=== PATIENT | male | born 2000 | race Caucasian/White ===

== ENCOUNTER 2021-12-08 13:30 | Emergency (ER) | payer OTHER, SELFPAY ==
[2021-12-08 13:48] VITALS: BP 129/69; PULSE 87; RESP 18; TEMP 36.3; O2SAT 100
--- NOTE | 2021-12-08 14:12 | ED.NAVMDI ---
HPI - Nausea/Vomiting/Diarrhea General Chief complaint: Nausea/Vomiting/Diarrhea Stated complaint: Nausea,Diarhea,Vomiting Source: patient Mode of arrival: ambulatory Limitations: no limitations History of Present Illness HPI Narrative: 21-year-old male presents to [facility] with complaints of lower abdominal pains, nausea, vomiting, diarrhea and chills for the past 5 days. Patient reports that he has been able to eat much food due to nausea and vomiting. Patient reports that he has urinated 1-2 times so far today. Patient reports that he has vomited 4-5 times over the past 24 hours and has had 2 episodes of diarrhea over the past 24 hours. Patient denies sick contacts. Patient denies recent travel. Patient reports that he has been feeling anxious over the past week or so due to an important event coming up. Patient denies suicidal or homicidal ideations. Patient currently does not have a primary care provider. Patient reports that he has not taken medications for anxiety or depression in the past. MD elicited complaint: nausea, vomiting, diarrhea and abdominal pain Onset (ago): day(s) (5) Associated nausea: Yes Associated abdominal pain: Yes Quality: aching Related Data Home Medications Medication Instructions Recorded Confirmed No Home Medications 12/08/21 12/08/21 Allergies Allergy/AdvReac Type Severity Reaction Status Date / Time No Known Allergies Allergy Mild Verified 12/08/21 13:38 Review of Systems Constitutional: Constitutional: Reports chills, Denies fatigue, Denies fever(s) and Denies weakness ENT: Denies vertigo and Denies dizziness Cardiovascular: Cardiovascular: Denies chest pain Respiratory: Respiratory: Denies chest congestion and Denies cough Gastrointestinal: Gastrointestinal: Reports abdominal pain, Reports diarrhea, Reports nausea and Reports vomiting Musculoskeletal: Musculoskeletal: Denies arthralgias and Denies joint swelling Integumentary/Breasts: Skin/Breast: Denies rash Neurologic: Denies dizziness PMFSH Social History Social History (Updated 12/08/21 @ 14:40 by Cheryl Robb APRN) Smoking status: Never smoker Substance use type: marijuana Comments At time of signature, I agree with nursing past medical, surgical, social and family history. There is no relevant family history pertinent to the presenting complaint. Exam Const: General: healthy appearing Nutritional Appearance: well nourished Orientation/consciousness: patient oriented x3 Limitations: no limitations Neck: Neck: normal visual inspection Resp: Effort & Inspection: normal respiratory effort and not labored Auscultation: clear to auscultation bilaterally and no crackles Cardio: Rate: regular rate Rhythm: regular rhythm Heart sounds: no murmurs GI: GI Palp: Yes Soft to palpation, Yes Tenderness to palpation present (GI) (Tenderness to right lower and left lower quadrant upon palpation), No Rigid due to palpation, No Palpable mass present and No Rebound tenderness present Auscultation: normal bowel sounds : General: Yes bladder normal to palpation Back/Spine/Pelvis: Back: no CVA tenderness Skin: General skin exam: normal color Rashes: no rashes Wounds: no wounds Neuro: General: patient oriented x3 Speech: normal speech Psych: Mental Status: mental status grossly normal Attitude: cooperative Other: Patient is tearful at times during examination. Patient is cooperative with examination. Patient appears anxious at times. Maintains eye contact during examination. Denies suicidal or homicidal ideations Course Course Level of Care: Express Care Visit Vital Signs Vital signs: Vital Signs Temperature 36.3 C L 12/08/21 13:48 Pulse Rate 87 12/08/21 13:48 Respiratory Rate 18 12/08/21 13:48 Blood Pressure 129/69 12/08/21 13:48 Pulse Oximetry 100 12/08/21 13:48 Oxygen Delivery Room Air 12/08/21 13:48 Temperature 36.3 C L 12/08/21 13:48 Pulse Rate 87 0
== END 2021-12-08 14:38 | disposition short-term general hospital (02) ==
PROVIDERS: Emergency Provider Nurse Practitioner Family
DX: R10.31 Right lower quadrant pain (principal); R10.32 Left lower quadrant pain; Z20.822 Contact with and (suspected) exposure to COVID-19
CPT/HCPCS: 87426; 99213; C9803; G0463

== ENCOUNTER 2021-12-08 14:53 | Emergency (ER) | payer OTHER, SELFPAY ==
[2021-12-08] VITALS (21 sets, daily range): BP systolic 131–165; BP diastolic 74–97; PULSE 78–98; RESP 10–29; TEMP 36.4–37.2; O2SAT 98–100
--- NOTE | ~2021-12-08 | CT_ITS ---
EXAMINATION: CT abdomen pelvis w con DATE: 12/08/2021 19:00 INDICATION: rlq pain TECHNIQUE: Computed tomography (CT) of the abdomen and pelvis was performed with 100 mL Omnipaque-350 intravenous contrast. Automated exposure control and iterative reconstruction technique were employe d. The dose-length product was 562.25 mGy-cm. COMPARISON: None. FINDINGS: Lower thorax: Unremarkable Liver: Normal. Biliary/Gallbladder: Gallbladder is normal. No bile duct dilation. Pancreas: No mass or duct dilation. Spleen: Normal. Adrenals:No mass. Kidneys: No mass, stone, or hydronephrosis. GI tract: No small or large bowel dilation. Normal appendix. Mesentery/Peritoneum: No ascites, mass, or free air. Retroperitoneum: No mass. Pelvis: Pelvic organs are within normal limits. Soft Tissues: Soft tissues and body wall unremarkable. Bones: No acute osseous finding. IMPRESSION: No acute abdominopelvic process detected. Reviewed, dictated and finalized at location K.
[2021-12-08 15:05] LABS: Basophils Percent Auto 0.4 % (0.2-1.2); Eosinophils Percent Auto 0.3 % (0-4.4); Hematocrit 46.6 % (42.0-52.0); Immature Granulocyte Absolute 0.02 K/mm3 (0.00-0.031); Immature Granulocyte Percent A 0.3 % (0-0.5); Lymphocytes Absolute Auto 1.44 K/mm3 (0.9-3.2); Lymphocytes Percent Auto 20.2 % (18.3-44.2); Mean Corpuscular HGB Conc 34.3 g/dl (32-36); Mean Corpuscular Hemoglobin 29.6 pg (26-34); Mean Corpuscular Volume 86.3 fl (80-100); Mean Platelet Volume 11.4 fl (7.4-10.4); Monocytes Absolute Auto 0.6 K/mm3 (0.1-0.6); Monocytes Percent Auto 8.1 % (2.6-8.5); Neutrophils Absolute Auto 5.1 K/mm3 (1.3-6.7); Neutrophils Percent Auto 70.7 % (45.5-73.1); Platelet Count Result 266 k/mm3 (150-375); Red Cell Distribution Width 11.4 % (11.5-14.5); White Blood Count 7.1 K/mm3 (4.5-10.0)
[2021-12-08 15:16] LABS: Alanine Aminotransferase 21 U/L (6-50); Albumin Level 5.5 g/dL (3.5-5.1); Alkaline Phosphatase 82 U/L (38-126); Anion Gap 17 mmol/L (8-16); Aspartate Amino Transferase 29 U/L (17-59); Bilirubin,Total 2.3 mg/dL (0.2-1.3); Blood Urea Nitrogen 15 mg/dL (9-20); Calcium 9.9 mg/dL (8.4-10.2); Carbon Dioxide 24 mmol/L (22-30); Chloride 99 mmol/L (98-107); Estimated CRCL calculation 102 ml/min; Estimated Glomerular Filt Rate > 60; Glucose 95 mg/dL (65-110); Lipase 69 U/L (23-300); Potassium 3.9 mmol/L (3.4-5.0); Sodium 140 mmol/L (137-145)
[2021-12-08 17:06] LABS: Appearance Urine Slightly Cloudy (Clear); Bilirubin Urine 2+ (Negative); Blood Urine Negative (Negative); Color Urine Yellow (Yellow); Glucose Urine UA Negative (Negative); Ketones Urine 4+ mg/dL (Negative); Leukocyte Esterase Ur Negative LEU/UL (Negative); Nitrate Urine Negative (Negative); Protein Urine 1+ mg/dL (Negative); Specific Grav Ur 1.025 (1.001-1.035)
[2021-12-08 17:12] LABS: Mucus Urine Heavy /lpf; RBC Urine 0-2 /hpf (0-2); Squamous Epithelial Cell Urine Rare /hpf (Few); WBC Urine 0-3 /hpf
[2021-12-08 17:38] LABS: Add Urine Microscopic? YES
[2021-12-08] MEDS: SODIUM CHLORIDE 0.9% IV 1,000 ML 999 ML IV CONT (18:37)
[2021-12-08] MEDS: ONDANSETRON INJ 4 MG/2 ML VIAL IV PUSH (18:39)
--- NOTE | 2021-12-08 18:52 | PC.NURSE ---
Pt to CT
--- NOTE | 2021-12-08 20:12 | ED.ABDPAIN ---
HPI - Abdominal Pain General Chief Complaint: Abdominal Pain Stated Complaint: abd pain Time Seen by Provider: 12/08/21 18:00 History of Present Illness HPI narrative: Patient is a 21-year-old male who presents ER with nausea and vomiting diarrhea. Reports he has vomited 5 times last 24 hours. He has been having 1 diarrhea stool each day. Reports he has been under a lot of stress because a friend of his is getting . Reports he has had issues with GI illness in the past when he has been under stress. No formal diagnosis of IBS or IBD. Was seen at urgent care and they felt a right lower quadrant tenderness and sent him here for labs and imaging. Patient has no hematemesis. He has noticed some pink blood on his toilet paper when wiping. Related Data Allergies Allergy/AdvReac Type Severity Reaction Status Date / Time No Known Allergies Allergy Mild Verified 12/08/21 13:38 Review of Systems Review of Systems: All systems reviewed & are unremarkable except as noted in HPI and below Constitutional: Constitutional: Denies chills, Reports fatigue and Denies fever(s) ENT: Denies nasal congestion Cardiovascular: Cardiovascular: Denies chest pain, Denies rapid heart rate and Denies radiating jaw, neck or arm pain Respiratory: Respiratory: Denies cough and Denies dyspnea Gastrointestinal: Gastrointestinal: Reports abdominal pain, Reports diarrhea, Reports nausea and Reports vomiting Genitourinary: Genitourinary: Denies dysuria and Denies urinary frequency PMFSH Past Medical History Medical History (Updated 12/08/21 @ 20:16 by Mikal Garcia MD) Healthy adult male Surgical History Surgical History (Updated 12/08/21 @ 20:14 by Mikal Garcia MD) No history of previous surgery Social History Social History (Updated 12/08/21 @ 14:40 by Cheryl Robb APRN) Smoking status: Never smoker Substance use type: marijuana Exam Narrative: GENERAL: Well-appearing, well-nourished, and in no acute distress. HEAD: Normocephalic, atraumatic. EYES: PERRL and EOMI. CHEST: Clear to auscultation. No respiratory distress. HEART: Regular rate and rhythm. Normal peripheral pulses. ABDOMEN: Soft, mild right lower quadrant tenderness without guarding, nondistended, normal active bowel sounds. EXTREMITIES: Normal range of motion. No edema. SKIN: Warm, dry, no rash. NEURO: Alert and oriented x3. PSYCH: Normal mood and affect. Course Course Emergency Course: Blood work unremarkable. UA with ketones. Patient hydrated and p.o. challenge. Imaging negative. Discharge home with antiemetics. Needs follow-up with PCP. May require GI evaluation if symptoms persistent. Vital Signs Vital signs: Vital Signs Temperature 98.0 F 12/08/21 14:55 Pulse Rate 84 12/08/21 14:55 Respiratory Rate 14 12/08/21 14:55 Blood Pressure 165/97 H 12/08/21 14:55 Pulse Oximetry 100 12/08/21 14:55 Oxygen Delivery Room Air 12/08/21 14:55 Temperature 97.6 F 12/08/21 17:35 Pulse Rate 86 12/08/21 19:52 Respiratory Rate 20 12/08/21 19:52 Blood Pressure 147/80 H 12/08/21 19:39 Pulse Oximetry 98 12/08/21 19:52 Oxygen Delivery Room Air 12/08/21 17:35 MDM - Abdominal Pain Lab Data Result diagrams: 12/08/21 14:59 12/08/21 14:59 Labs: Lab Results 12/08/21 12/08/21 12/08/21 Range/Units 14:59 14:59 16:51 WBC 7.1 (4.5-10.0) K/mm3 RBC 5.40 (4.6-6.20) M/mm3 Hgb 16.0 (14.0-18.0) g/dL Hct 46.6 (42.0-52.0) % MCV 86.3 (80-100) fl MCH 29.6 (26-34) pg MCHC 34.3 (32-36) g/dl RDW 11.4 L (11.5-14.5) % Plt Count 266 (150-375) k/mm3 MPV 11.4 H (7.4-10.4) fl Immature Gran % (Auto) 0.3 (0-0.5) % Neut % (Auto) 70.7 (45.5-73.1) % Lymph % (Auto) 20.2 (18.3-44.2) % [place] % (Auto) 8.1 (2.6-8.5) % Eos % (Auto) 0.3 (0-4.4) % Baso % (Auto) 0.4 (0.2-1.2) % Lymph # (Auto) 1.44 (0.9-3.2) K/mm3 Mo
== END 2021-12-08 20:35 | disposition home or self-care (01) ==
PROVIDERS: Emergency Provider Emergency Medicine
DX: R19.7 Diarrhea, unspecified (principal); R10.31 Right lower quadrant pain
CPT/HCPCS: 36415; 74177; 80053; 81001; 83690; 85025; 87426; 96361; 96374; 99284; C9803; J2405; J7030; Q9967

== ENCOUNTER 2022-02-24 11:43 | Outpatient (CLI) | payer OTHER, SELFPAY ==
[2022-02-24 12:16] LABS: Alanine Aminotransferase 23 U/L (6-50); Albumin Level 4.7 g/dL (3.5-5.1); Alkaline Phosphatase 57 U/L (38-126); Aspartate Amino Transferase 28 U/L (17-59); Bilirubin,Total 0.8 mg/dL (0.2-1.3); CRP < 0.5 mg/dL (<1.0)
[2022-02-24 12:32] LABS: Erythrocyte Sedimentation Rate 10 mm/hr (0-20)
[2022-02-26 19:58] LABS: H pylori, Urea Breath NOT DETECTED (NOT DETECTED)
[2022-03-02 08:18] LABS: Gliadin AB, IgG <1.0; TTG IGA AB <1.0
== END 2022-02-24 11:44 | disposition home or self-care (01) ==
LOC: ANHLAB 11:45
PROVIDERS: Visit Provider Nurse Practitioner
DX: K21.9 Gastro-esophageal reflux disease without esophagitis (principal); K58.9 Irritable bowel syndrome, unspecified; R11.2 Nausea with vomiting, unspecified; R17 Unspecified jaundice; R63.0 Anorexia
CPT/HCPCS: 36415; 80076; 83013; 83516; 84443; 85652; 86140

== ENCOUNTER 2024-09-03 12:10 | Emergency (ER) | payer OTHER, SELFPAY ==
--- OUTSIDE RECORDS SUMMARY | 2024-09-03 12:12 | XMS_ITS ---
Author Organization [facility] Address [address] [address] Care Team Providers Care Intake Man Name Role Phone Krystle Buckley PA-C Primary Care Provider UnavailChrista Rudolph Unavailable [phone] Social History Sex Assigned At : Social History Observation Description Sex Assigned At Male Encounters Encounter Location Date Provider Diagnosis [facility] [address] [facility] [address] [place] [address] 05/09/2024 Christa Steele Plan Of Treatment Next Appt Details Provider Name:Christa Steele, 02/21/2025 01:15:00 PM, [address], [facility] [address], [place], [address], Progress Notes * CAROL COXDOB:[birth year] (24 yo M)Acc No.[id number]:05/09/2024 Patient: Katiana HORVATH CAROL LORD Provider: HORTENCIA BURNETTE :2000 A ge:24 Y S ex:Male Date:05/09/2024 Address:[address] [place] [id number] Pcp:Krystle Buckley PA-C Subjective: * Chief Complaints: * * Medical History: Objective: * Vitals: Assessment: Plan: * Treatment: * Billing Information: * Visit Code: * Procedure Codes: * Electronic signature of HORTENCIA Plata on 09/03/2024 at 12:12 PM CDT Sign off status: Pending * Provider: JACQUELIN BURNETTEP Date: 0 05/09/2024 Generated for oY carrillo/Jad/Gagandeep on: 0 09/03/2024 12:12 PM CDT
--- OUTSIDE RECORDS SUMMARY | 2024-09-03 12:12 | XMS_ITS | Clinical Summary ---
Author Organization [facility] Address [address] [place] [address] Care Team Providers Care Radio Mechanic Apprentice Name Role Phone Unavailable Primary Care Provider Unavailabl e Immunizations Immunization Administration Dates Next Due Covid-19, Mrna, Lnp-s, Pf, 30 Mcg/0.3 Ml Dose (P fizer) 02/11/2021,01/02/2021 Social History Tobacco Use Types Packs/Day Years Used Date Smoking Tobacco: Never Assessed Sex and Gender Information Value Date Recorded Sex Assigned at Not on file Legal Sex Male 11:22 AM CDT Gender Identity Not on file Sexual Orientation Not on file Plan of Treatment Health Maintenance Due Date Last Done Comments Hepatitis C Virus (HCV) Screening 2000 Influenza Immunization (#1) 2024 11/0 10/2017, 01/08/2017, 01/12/2014, Additional history exists SARS-COV-2 Immunization ( season) 2024 02/11/2021, 01/02/2021 Respiratory Syncytial Virus (RSV) Immunization (Adult) (1 - 1-dose 75+ series) 2074 Hepatitis B Immunization Completed 000, 1999, 1999 DTaP/Tdap/Td Immunization Discontinued 2010, 07/22/2000, 1999, Additional history exists TdaP Immunization Completed 11/24/2010 Human Papillomavirus (HPV) Immunization Completed 12/28/2014, 06/22/2014, 01/12/2014, Additional history exists Meningococcal Immunization (ACWY) Completed 01/08/2017, 11/24/2010 Pneumococcal Immunization Combined Aged Out No longer eligible based on patient's age to complete this topic Rotavirus Immunization Aged Out No lo nger eligible based on patient's age to complete this topic
--- OUTSIDE RECORDS SUMMARY | 2024-09-03 12:12 | XMS_ITS | Clinical Summary ---
Author Organization [facility] Address [address] [place] [address] Care Team Providers Care Generating Plant Superintendent Name Role Phone Kylie Martinez MD Unavailable [phone] Kylie Martinez MD Primary Care Provider [phone] Source Comments [facility],non-owned Affiliates and Associated Physician Practices is amultiple site organization consisting of ambulatory clinics and hospital sitesin [place], [place], [place] and [place]. This disclosure is being madepursuant to the Care Everywhere program and may not contain all information available regarding this patient. Last updated 18.[employer] [facility] Allergies No known active allergies Medications * Be aware that medications may not be up to date on this document. Alwaysverify current medications with the patient. acetaminophen (TYLENOL) 500 MG tablet Take 500 mg by mouth every 4 hours as needed for Fever or Pain. Maximum allowable Acetaminophen amount = 4 Grams (4000 mg) / 24 hours. Active omeprazole (PRILOSEC) 40 MG capsule Take 1 Cap by mouth 2 times daily,before breakfast and supper. 60 Cap 2 5 Active Additional Information Patient not taking.Reported on 01/08/2017 minocycline (MINOCIN) 100 MG capsule TAKE 1 CAPSULE BY MOUTH TWICE DAILY 60 capsule 1 0 Active Active Problems Problem Noted Date Diagnosed Date Epigastric abdominal pain 08/07/2014 GE reflux 08/07/2014 Nausea without vomiting 08/07/2014 Overview (01/31/2015): Buckle Fracture of left distal radius 09/28/2012 Abdominal pain 07/08/2012 Chest pain 07/08/2012 Status post patch closure of ASD 03/29/2012 Immunizations Immunization Administration Dates Next Due DTaP VACCINE IM (6wk-6yrs) 12/01/2004,,1999,05/15,1999 HEP A PEDS 2 DOSE 01/29/2006,12/01/2004 HEP B VACCINE, PED/ADOL 04/22/2000,1999, HIB BOOSTER 07/22/2000, 0,1999,03/11 Human Papilloma Virus Yaron valent Vaccine 12/28/2014,06/22/2014,01/12/2014 INFLUENZA VACCINE 01/25/2009, 7,01/29/2006,04/10,03/09/2005 INFLUENZA VACCINE, QUADR. (F LUZONE; FLULAVAL; FLUARIX; AFLURIA QUADRIVALENT; 6MO+), 0.5 ML (IIV4) 03/09/2018,01/08/2017 Influenza Nasal 05/16/2012,03/16/2011,02/27/2010 CARA VACCINE QUAD LAIV4 PF NASAL 01/12/2014 MENINGOCOCAL MENINGITIS 11/24/2010 MENINGOCOCCAL ACWY (MCV4P) VAC IM 01/08/2017 MMR 12/01/2004,01/22/2000 POLIO IPV 12/01/2004, 0,1999,03/11 PPD 12/01/2004,01/22/2000 TDAP (7yrs+) 11/24/2010 VARICELLA 11/24/2010,04/22/2000 Family History Medical History Relation Name Comments GERD - Gastroesophageal Reflux Disease Maternal Grandm other Celiac Disease Neg Hx Crohn's Disease Neg Hx IBS Neg Hx Stomach ulcers Neg Hx Ulcerative Colitis Neg Hx Relation Name Status Comments Maternal Grandmother Social History Tobacco Use Types Packs/Day Years Used Date Smoking Tobacco: Never Alcohol Use Standard Drinks/Week Comments No 0 (1 standard drink = 0.6 oz pur e alcohol) Sex and Gender Information Value Date Recorded Sex Assigned at Not on file 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 Gender Identity Not on file Sexual Orientation Not on file Last Filed Vital Signs Vital Sign Reading Time Taken Comments Blood Pressure 132/70 01/08/2017 3:45 PM CDT Pulse 70 01/08/2017 3:45 PM CDT Temperature 36.4 C (97.5 F) 12/13/2019 3:02 PM CDT Respiratory Rate 16 08/01/2010 9:58 AM CDT Oxygen Saturation 98% 06/25/2012 10:41 AM GLUE JOINTER FEEDER Inhaled Oxygen Concentration - - Weight 76.5 kg (168 lb 9.6 oz) 12/13/2019 3:02 P M CDT Height 174 cm (5' 8.5 ) 01/08/2017 3:45 PM CDT Body Mass Index - - Plan of Treatment Health Maintenance Due Date Last Done Comments HIV SCREENING 2014 HEPATITIS C SCREENING 01/04/2017 DTAP/TDAP/TD VACCINES (7 - Td or Tdap) 11/24/2020 11/24/2010, 12/01/2004, 07/22/2000, Additional history exists COVID-19 VACCINE (2023- season) 2024 DEPRESSION SCREENING 05/03/2024 INFLUENZA VACCINE (Season Ended) 2025 03/09/2018, 01/08/2017, 01/12/2014, Additional history exists ZOSTER VACCINE (1 of 2) 2049 HEPATITIS B VACCINE Completed 04/22/2000, 1999, 1999 HIB VACCINE Completed 07/22/2000, 07/01, 1999, Additional history exists HPV VACCINE Completed 12/28/2014, 06/04, 01/12/2014 MENINGOCOCCAL GROUPS A/C/Y/W VACCINE Completed 01/08/2017, 11/24/2010 MENINGOCOCCAL (Group B) VACCINE SHARED DECISION-MAKING Aged Out No longer eligible based on patient's age to complete this topic PNEUMOCOCCAL VACCINE Aged Out No long er eligible based on patient's age to complete this topic Goals Goal Patient Goal Type Associated Problems Recent Progress Patient-Stated? Author Use safety retraint in car Lifestyle On track( 017 3:46 PM CDT) No Kylie Thomas, [place] Insurance Care Teams Generating Plant Superintendent Relationship Specialty Start Date End Date Kylie Martinez MD PCP - Pediatrics 03/07/09 Kylie Martinez MD PCP - General Pediatrics 08/07/14
--- OUTSIDE RECORDS SUMMARY | 2024-09-03 12:12 | XMS_ITS | Patient Health Record ---
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 Name Role Phone Krystle Buckley PA-C Primary Care Provider Unavailab Christa Pina Unavailable [phone] Carlos Garibay Unavailable [phone] Migration, Provider Unavailable Unavailable Allergies No Known Allergies Reason For Referral No Information Medications Medication SIG (Take, Route, Frequency, Duration) Notes Start Date End Date Status Ondansetron 4 MG Oral 09/08/2023 Un known clomiPRAMINE HCl 50 MG 2 capsule at bedt linda Oral Once a day for 90 days Active clomiPRAMINE HCl 75 MG 2 capsule at bedt linda Oral Once a day for 90 days Active busPIRone HCl 30 MG 1 tablet Oral Once a day for 90 days Active hydrOXYzine HCl 25 MG Oral 09/08/2023 Not-Taking Omeprazole 40 MG Oral 09/08/2023 Un known Rexulti 3 MG 1 tablet Orally Once a day for 90 days Active Social History Tobacco Use: Social History Observation Description Date Details (start date - stop date) Never Smoker NA - NA Sex Assigned At : Social History Observation Description Sex Assigned At Male Tobacco Control (Standard) Question Answer Notes Tobacco use: Nonsmoker AUDIT-C (Standard) Question Answer Notes Did you have a drink containing alcohol in the p ast year? No Problems Problem Type SNOMED Code ICD Code Onset Dates Problem Status W/U Status Risk Notes Problem Severe recurrent major depression without psychotic features (62050458) Major depressive disorder, recurrent severe without psychotic features (F33.2) Active confirmed Problem Generalized anxiety disorder (80615659) Generalized anxiety disorder (F41.1) Active confirmed Problem Obsessive-compul sive disorder (912543154) Obsessive-compu lsive disorder, unspecified (F42.9) Active confirmed Vital Signs Heart Rate 91 /min 08/22/2024 Blood pressure diastolic 83 mm Hg 08/22/2024 Height-cm 175.26 cm 08/22/2024 Weight-kg 99.79 kg 08/22/2024 Height 69.00 in 08/22/2024 Blood pressure systolic 119 mm Hg 08/22/2024 Weight 220 lbs 08/22/2024 BMI 32.48 kg/m2 08/22/2024 Encounters Encounter Location Date Provider Diagnosis [facility] [place] [id number] [address] 09/08/2023 Christa Ivette Major depressive disorder, recurrent severe without psychotic features F33.2 ; Generalized anxiety disorder F41.1 and Obsessive-compulsive disorder, unspecified F42.9 [facility] [place] [id number] [address] 11/08/2023 Christa Ivette Major depressive disorder, recurrent severe without psychotic features F33.2 ; Generalized anxiety disorder F41.1 and Obsessive-compulsive disorder, unspecified F42.9 [facility] [address] [address] 11/24/2023 Carlos Garibay Obsessive-compulsive disorder, unspecified F42.9 [facility] [address] [address] 12/20/2023 Christa Ivette Major depressive disorder, recurrent severe without psychotic features F33.2 ; Generalized anxiety disorder F41.1 and Obsessive-compulsive disorder, unspecified F42.9 [facility] [address] [facility] [address] [place] [address] 01/28/2024 Christa Ivette Major depressive disorder, recurrent severe without psychotic features F33.2 ; Generalized anxiety disorder F41.1 and Obsessive-compulsive disorder, unspecified F42.9 [facility] [address] [address] 03/10/2024 Christa Ivette Major depressive disorder, recurrent severe without psychotic features F33.2 ; Generalized anxiety disorder F41.1 and Obsessive-compulsive disorder, unspecified F42.9 [facility], [facility] [address] [place] [address] 05/30/2024 Christa Steele Major depressive disorder, recurrent severe without psychotic features F33.2 ; Generalized anxiety disorder F41.1 and Obsessive-compulsive disorder, unspecified F42.9 [facility], [facility] [address] [place] [address] 08/22/2024 Christa Steele Encounter for screening for depression Z13.31 ; Encounter for screening for cardiovascular disorders Z13.6 ; Major depressive disorder, recurrent severe without psychotic features F33.2 ; Generalized anxiety disorder F41.1 and Obsessive-compulsive disorder, unspecified F42.9 [facility] [address] [place] [address] 09/18/[address] [facility], [facility] [address] [place] [address] 09/19/[address] [facility], [facility] [address] [place] [address] 12/07/[address] [facility], [facility] [address] [place] [address] 03/23/2024 Christa Steele Generalized anxiety disorder F41.1 [facility] [address] [place] [address] 12/03/[address] [facility], [facility] [address] [place] [address] 12/04/[address] [facility], [facility] [address] [place] [address] 12/06/[address] [facility], [facility] [address] [place] [address] 12/07/2023 Christa Steele Obsessive-compulsive disorder, unspecified F42.9 [facility], [facility] [address] [place] [address] 02/22/2024 Christa Steele Major depressive disorder, recurrent severe without psychotic features F33.2 [facility], [facility] [address] [place] [address] 02/23/2024 Christa Steele Assessments Encounter Date Diagnosis (ICD Code) Assessment Notes Treatment Notes Treatment Clinical Notes Section Notes 11/24/2023 Obsessive-compuls rigoberto disorder, unspecified (ICD-10 - F42.9) Obsessive-Compu lsive Disorder (OCD) - Assessment: Patient reports persistent and intrusive obsessive thoughts and compulsive behaviors, including excessive hand washing and cleaning, which significantly impact daily functioning. Currently on clomipramine 250mg and buspirone with 40-50% improvement in symptoms. Previous trials of amitriptyline 50mg, duloxetine 60mg, and fluoxetine 20mg. - Plan: - Consider adding Rexulti as an augmentation strategy. Provide samples and instruct the patient to take once daily at night. Monitor for any side effects and improvement in OCD symptoms. - Assess eligibility for Transcranial Magnetic Stimulation (TMS) therapy. Obtain detailed medication history, including start and stop dates for previous trials, as required by insurance. Schedule a two-hour appointment for OCD rating scale assessment with either Dr. Garibay or Christa. - Continue follow-up with Christa for ongoing management and support. Unemployment - Assessment: Patient is currently not working and expresses a desire to find a job. - Plan: - Encourage the patient to explore job opportunities as their OCD symptoms improve with treatment. - Continue follow-up with Christa for ongoing support and guidance in this area. 11/08/2023 Major depressive disorder, recurrent severe without psychotic features (ICD-10 - F33.2) 11/08/2023 Generalized anxiety disorder (ICD-10 - F41.1) 01/28/2024 Major depressive disorder, recurrent severe without psychotic features (ICD-10 - F33.2) 12/07/2023 Obsessive-compuls rigoberto disorder, unspecified (ICD-10 - F42.9) 12/20/2023 Major depressive disorder, recurrent severe without psychotic features (ICD-10 - F33.2) 02/22/2024 Major depressive disorder, recurrent severe without psychotic features (ICD-10 - F33.2) 03/10/2024 Major depressive disorder, recurrent severe without psychotic features (ICD-10 - F33.2) 03/23/2024 Generalized anxiety disorder (ICD-10 - F41.1) 05/30/2024 Major depressive disorder, recurrent severe without psychotic features (ICD-10 - F33.2) 09/08/2023 Major depressive disorder, recurrent severe without psychotic features (ICD-10 - F33.2) 09/08/2023 Generalized anxiety disorder (ICD-10 - F41.1) 09/08/2023 Obsessive-compuls rigoberto disorder, unspecified (ICD-10 - F42.9) 08/22/2024 Encounter for screening for depression (ICD-10 - Z13.31) 08/22/2024 Encounter for screening for cardiovascular disorders (ICD-10 - Z13.6) 05/30/2024 Generalized anxiety disorder (ICD-10 - F41.1) 03/10/2024 Generalized anxiety disorder (ICD-10 - F41.1) 12/20/2023 Generalized anxiety disorder (ICD-10 - F41.1) 01/28/2024 Generalized anxiety disorder (ICD-10 - F41.1) 11/08/2023 Obsessive-compuls rigoberto disorder, unspecified (ICD-10 - F42.9) 01/28/2024 Obsessive-compuls rigoberto disorder, unspecified (ICD-10 - F42.9) 12/20/2023 Obsessive-compuls rigoberto disorder, unspecified (ICD-10 - F42.9) 03/10/2024 Obsessive-compuls rigoberto disorder, unspecified (ICD-10 - F42.9) 05/30/2024 Obsessive-compuls rigoberto disorder, unspecified (ICD-10 - F42.9) 08/22/2024 Major depressive disorder, recurrent severe without psychotic features (ICD-10 - F33.2) 08/22/2024 Generalized anxiety disorder (ICD-10 - F41.1) 08/22/2024 Obsessive-compuls rigoberto disorder, unspecified (ICD-10 - F42.9) 11/08/2023 Other Continue current medications. No significant change with last dose adjustment. Overall symptoms have improved but still causing distress and interference with daily life. Interested in TMS, schedule with Dr Garibay. 12/20/2023 Other Increase Rexulti-take 1 mg daily for two weeks, then 2 mg daily. Samples given, will do PA if positive response. Patient educated on all medications including potential benefits, side effects, risks. Educated on proper dosing schedule and importance of compliance. 01/28/2024 Other Increase Rexulti to 3mg daily. Consider switching to Abilify, Vraylar is ineffective. Patient educated on all medications including potential benefits, side effects, risks. Educated on proper dosing schedule and importance of compliance. Monitor tremor-could be s/e from buspar. 03/10/2024 Other Overall feels stable, continue current medications. Patient educated on all medications including potential benefits, side effects, risks. Educated on proper dosing schedule and importance of compliance. 05/30/2024 Other Satisfied with current medication plan, cont current medications. Refills sent in today. Patient educated on all medications including potential benefits, side effects, risks. Educated on proper dosing schedule and importance of compliance. -Assessment and treatment plan reviewed with patient. -Compliance with treatment plan importance discussed. -Discussed the risks/benefits of this medication -Discussed medication side effects. -Contact office if symptoms worsen. -Discussed that it can take up to 6-8 weeks to see full therapeutic effects of psychotropic medications. -Crisis prevention hotline 988. 08/22/2024 Other Increase buspar 30 mg daily for anxiety Patient educated on all medications including potential benefits, side effects, risks. Educated on proper dosing schedule and importance of compliance. -Assessment and treatment plan reviewed with patient. -Compliance with treatment plan importance discussed. -Discussed the risks/benefits of this medication -Discussed medication side effects. -Contact office if symptoms worsen. -Discussed that it can take up to 6-8 weeks to see full therapeutic effects of psychotropic medications. -Crisis prevention hotline 988. Plan Of Treatment Next Appt Details Provider Name:Christa Steele, 02/21/2025 01:15:00 PM, [address], [facility] [address], [place], [address], Insurance Providers Payer Name Payer Address Payer Phone Subscriber Number Group Number Insured Name Patient Relationship to Insured Coverage Start Date Coverage End Date [facility] [address] [place] [address] [id number] [employer] Child - Insured has Financial Responsibility Medical (General) History Medical History History ICD Code Problems: Generalized anxiety disorder Obsessive-compulsive disorder Severe recurrent major depression withou t psychotic features Surgical History Surgery Date(Month/Year) Heart surgery 11/26/2005 ASD repair 11/27/2005
[2024-09-03 12:26] VITALS: BP 127/77; PULSE 87; RESP 18; TEMP 36.3; O2SAT 100
--- NOTE | 2024-09-03 12:37 | ED.GENADULT ---
HPI - General Adult General Chief complaint: Ear Stated complaint: Rt Ear Pain Time Seen by Provider: 09/03/24 12:37 Source: patient Mode of arrival: ambulatory Limitations: no limitations History of Present Illness HPI narrative: 24-year-old male patient presents to [facility] with complaints of right ear pain for the past 4 days. Patient states he has had some drainage coming from the ear and hurts when manipulating the ear. Denies fevers, body aches or chills. Denies any runny nose or congestion. Denies any sore throat. Denies any cough, chest pain or shortness of breath. Denies any abdominal pain, nausea, vomiting or diarrhea. Patient states he has taken some ibuprofen for his pain. Related Data Allergies Allergy/AdvReac Type Severity Reaction Status Date / Time No Known Allergies Allergy Mild Verified 09/15/22 15:00 Review of Systems Review of Systems: CONSTITUTIONAL: Denies fever, chills, or sweats. EYES: Denies visual changes, redness, or discharge. ENT: Denies rhinorrhea, congestion, sore throat, Positive right otalgia. CARDIOVASCULAR: Denies chest pain, palpitations, or edema. RESPIRATORY: Denies cough or dyspnea. GASTROINTESTINAL: Denies abdominal pain, nausea, vomiting, or diarrhea. GENITOURINARY: Denies dysuria or hematuria. SKIN: Denies rash or itching. MUSCULOSKELETAL: Denies back pain, joint pain, or myalgia. NEUROLOGIC: Denies headache, numbness, or weakness. PSYCHIATRIC: Denies anxiety or depression. [facility] Past Medical History Medical History BMI 28.0-28.9,adult Irritable bowel syndrome with diarrhea BMI 29.0-29.9,adult Appetite loss Total bilirubin, elevated GERD (gastroesophageal reflux disease) Obesity Nausea & vomiting IBS (irritable bowel syndrome) Abdominal cramping Epigastric pain Total bilirubin, elevated Healthy adult male Surgical History Surgical History History of repair of atrial septal defect [place] teeth extracted Hx of LASIK No history of previous surgery Social History Social History Smoking status: Never smoker Alcohol intake: never Substance use type: marijuana Lack of Transportation: No Lack of Food: Never True Current Housing: I Have Housing Concerned About Future Housing: No Difficulty Paying Gas/Electric Bills: No Difficulty Paying for Meds: No Currently Unemployed: No Education: Associate Degree Difficulty w/ Childcare or Family Care: No Comments At the time of my signature I agree with nursing past medical history, surgical, social, and family history. There is no relevant family history pertinent to the presenting complaint. Exam Narrative: GENERAL: Well-appearing, well-nourished, and in no acute distress. HEAD: Normocephalic, atraumatic. EYES: PERRLA and EOMI. ENT: Nares clear, no rhinorrhea or epistaxis. Mucous membranes moist. posterior pharynx with no erythema, tonsillar enlargement, exudates or lesions present. The left TM is clear no erythema or foreign bodies the canal. The right ear has swelling noted to the canal and some discharge. Unable to visualize the right TM. NECK: Supple. No lymphadenopathy CHEST: Clear to auscultation. No respiratory distress. HEART: Regular rate and rhythm. No murmur heard. Normal peripheral pulses. ABDOMEN: Soft, nontender, nondistended, normal active bowel sounds. EXTREMITIES: Normal range of motion. No edema. SKIN: Warm, dry, no rash. NEURO: No focal deficits. Alert and oriented x3. Course Course Level of Care: Express Care Visit Vital Signs Vital signs: Vital Signs Temperature 36.3 C L 09/03/24 12: Pulse Rate 87 09/03/24 12: Respiratory Rate 18 09/03/24 12:26 Blood Pressure 127/77 09/03/24 12:26 Pulse Oximetry 100 09/03/24 12:26 Oxygen Delivery Room Air 09/03/24 12:26 Temperature 36.3 C L 09/03/24 12:26 Pulse Rate 87 09/03/24 12:26 Respiratory Rate 18 09/03/24 12:26 Blood Pressure 127/77 09/03/24 12:26 Pulse Oximetry 100 09/03/24 12:26 Oxygen Delivery Room Air 09/03/24 12:26 Medical Decision Making Differential Diagnosis Differential Diagnosis: Differential diagnosis: Otitis media, otitis externa, perforated TM, infection of the outer ear, foreign body or cerumen impaction, ruptured TM, acute mastoiditis, ligament otitis externa, dehydration, pneumonia, sepsis, dental or intraoral infection, TMJ dysfunction Vital Signs Vital Signs: Vital Signs Temperature 36.3 C L 09/03/24 12:26 Pulse Rate 87 09/03/24 12:26 Respiratory Rate 18 09/03/24 12:26 Blood Pressure 127/77 09/03/24 12:26 Pulse Oximetry 100 09/03/24 12:26 Oxygen Delivery Room Air 09/03/24 12:26 Temperature 36.3 C L 09/03/24 12:26 Pulse Rate 87 09/03/24 12:26 Respiratory Rate 18 09/03/24 12:26 Blood Pressure 127/77 09/03/24 12:26 Pulse Oximetry 100 09/03/24 12:26 Oxygen Delivery Room Air 09/03/24 12:26 Critical Care Time Critical Care Time Critical Care Time: No Discharge Plan Discharge Clinical Impression: Acute otitis externa of right ear Patient Disposition: Home Condition: Stable Instructions: Antibiotic Form, Swimanthony's Ear (ED) Additional Instructions: Return to the emergency department if: You have severe ear pain. You are suddenly unable to hear at all. You have new swelling in your face, behind your ears, or in your neck. You suddenly cannot move part of your face. Your face suddenly feels numb. Contact your healthcare provider if: You have a fever. Your signs and symptoms do not get better after 2 days of treatment. Your signs and symptoms go away for a time, but then come back. You have questions or concerns about your condition or care. Medicines: NSAIDs , such as ibuprofen, help decrease swelling, pain, and fever. This medicine is available with or without a doctor's order. NSAIDs can cause stomach bleeding or kidney problems in certain people. If you take blood thinner medicine, always ask if NSAIDs are safe for you. Always read the medicine label and follow directions. Do not give these medicines to children under 6 months of age without direction from your child's healthcare provider. Acetaminophen decreases pain and fever. It is available without a doctor's order. Ask how much to take and how often to take it. Follow directions. Acetaminophen can cause liver damage if not taken correctly. Ear drops that contain an antibiotic may be given. The antibiotic helps treat a bacterial infection. You may also be given steroid medicine. The steroid helps decrease redness, swelling, and pain. How to use eardrops: Lie down on your side with your infected ear facing up. Carefully drip the correct number of eardrops into your ear. Have another person help you if possible. Gently move the outside part of your ear back and forth to help the medicine reach your ear canal. Stay lying down in the same position (with your ear facing up) for 3 to 5 minutes. Prevent otitis externa: Do not put cotton swabs or foreign objects in your ears. Wrap a clean moist washcloth around your finger, and use it to clean your outer ear and remove extra ear wax. Use ear plugs when you swim. Dry your outer ears completely after you swim or bathe. Patient Language: Upper Sorbian Prescriptions: New ofloxacin 0.3 % drops 10 drp EACH EAR DAILY 7 Days Qty: 10 0RF No Action quetiapine [Seroquel] 25 mg tablet 25 mg PO QHS Qty: 30 2RF prochlorperazine maleate [Compazine] 10 mg tablet 10 mg PO Q6H PRN (Reason: nausea and vomiting) Qty: 60 0RF Rx Instructions: Max 40 mg per day duloxetine [Cymbalta] 30 mg capsule,delayed release(DR/EC) 30 mg PO DAILY Qty: 30 3RF omeprazole 40 mg capsule,delayed release(DR/EC) See Rx Instructions .ROUTE .COMPLEX Qty: 30 6RF Dose Instruction: TAKE 1 CAPSULE BY MOUTH DAILY Rx Instructions: TAKE 1 CAPSULE BY MOUTH DAILY Follow-up/Referrals: Lefty Teague MD [Primary Care Provider] - Time of Disposition: 12:45
== END 2024-09-03 12:48 | disposition home or self-care (01) ==
PROVIDERS: Emergency Provider Nurse Practitioner Family; PCP Family Medicine
DX: H60.91 Unspecified otitis externa, right ear (principal); F12.90 Cannabis use, unspecified, uncomplicated; K21.9 Gastro-esophageal reflux disease without esophagitis; E66.9 Obesity, unspecified; Z68.29 Body mass index [BMI] 29.0-29.9, adult
CPT/HCPCS: 99213; G0463